=== PATIENT | female | born 1980 | race Caucasian/White ===

== ENCOUNTER → 2020-02-21 | Outpatient (CLI) | payer BC ==
[~2020-02-21] MED LIST: COLACE 100MG C100 MG PO
== END ==
LOC: RT 09:34
DX: R00.9 Unspecified abnormalities of heart beat (principal)

== ENCOUNTER → 2020-02-23 | Outpatient (CLI) | payer BC ==
[2020-02-24 09:13] LABS: ANTISTREPTOLYSIN O AB 143.1 IU/mL (0.0-200.0); RHEUMATOID ARTHRITIS FACTOR <10.0 IU/mL (0.0-13.9)
== END ==
LOC: LAB 06:59
PROVIDERS: Nurse Practitioner
DX: Z13.89 Encounter for screening for other disorder (principal); E03.9 Hypothyroidism, unspecified; R00.1 Bradycardia, unspecified; M25.531 Pain in right wrist
CPT/HCPCS: 36415; 84443; 84550; 85652; 86038; 86060; 86140; 86431

== ENCOUNTER → 2020-04-08 | Outpatient (CLI) | payer BC ==
[2020-04-08 11:56] LABS: HEMOGLOBIN 13.9 gm/dl (12.3-15.3); RED BLOOD COUNT 4.53 M/UL (4.00-5.10); WHITE BLOOD COUNT 6.2 K/UL (4.5-11.0)
[2020-04-08 12:14] LABS: BUN/CREATININE RATIO 10 (0-10)
[2020-04-09 10:14] LABS: VITAMIN D, 25-HYDROXY 38.7 ng/mL (30.0-100.0)
[2020-04-09 12:14] LABS: RHEUMATOID ARTHRITIS FACTOR <10.0 IU/mL (0.0-13.9)
[2020-04-09 23:09] LABS: CCP ANTIBODIES IGG/IGA 5 units (0-19)
== END ==
LOC: LAB 09:51
PROVIDERS: Nurse Practitioner Family
DX: D89.9 Disorder involving the immune mechanism, unspecified (principal); M25.50 Pain in unspecified joint; R76.8 Other specified abnormal immunological findings in serum; E55.9 Vitamin D deficiency, unspecified
CPT/HCPCS: 36415; 80053; 85025; 86200; 86431

== ENCOUNTER → 2020-04-12 | Outpatient (CLI) | payer BC | LOC: LAB 09:58 | DX: E55.9 Vitamin D deficiency, unspecified (principal) | CPT/HCPCS: 81001; 82570; 84156 ==